=== PATIENT | male | born 1975 | race Two or more races ===

== ENCOUNTER 2019-08-28 16:54 | Emergency (ER) | payer MEDICAID, OTHER ==
[~2019-08-28] VITALS: Ht 190.5 cm; Wt 129.3 kg
[~2019-08-28 16:54] MED LIST: ACYCLOVIR400 MG ORAL; ASPIRIN325 MG ORAL; AZITHROMYCIN250 MG ORAL; BACK STABILIZE1 EACH MC; CEPHALEXIN500 MG ORAL; DOXYCYCLINE MO100 MG ORAL; IBUPROFEN600 MG ORAL; MEDROL DOSEPAK4 MG ORAL; NORCO 5-325 TA1 EACH ORAL; PRILOSEC20 MG ORAL
[2019-08-28 17:15] VITALS: BP 115/76
--- NOTE | 2019-08-28 17:15 | NUR ---
ED Nurse Note: Patient walked in to ER from home due to lower back pain x1 week. Pt has historyn of bulged disc. No SOB. Afebrile. VSS.
--- NOTE | 2019-08-28 18:02 | NUR ---
ED Nurse Note: ERPA at bedside.
[2019-08-28] MEDS ORDERED: HYDROmorphone 1mg/ml Carpuject IM ONE (18:15)
[2019-08-28] MEDS ORDERED: Dexamethasone 4mg/ml vial IM ONE (18:15)
--- NOTE | 2019-08-28 18:37 | Emergency Room Report ---
History of Present Illness General Chief Complaint: Back Pain-No Injury Source: Patient Present Illness HPI 44-year-old male presents to the emergency department complaining of progressive 10/10 in severity low back pain x1 week. Patient states that he has had multiple episodes of similar symptoms in the past and he would typically receive an injection. Patient is requesting the same injection that he received last time and states that it was directly into the spine under anesthesia. Patient denies recent spinal procedures within the last 3 months. Patient denies appreciable trauma or fall. 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 Patient reports pain with attempts to ambulate he denies saddle anesthesia, paresthesia or weakness in the lower extremities. Patient denies urinary incontinence or retention. He denies fevers, chills, night sweats or history of neoplastic disease. Patient is reporting that he is unable to find a position of comfort and does not list any alleviating factors. Denies abdominal pain, urinary frequency, urgency, or hematuria. Allergies: Coded Allergies: No Known Allergies (Unverified , 05/27/14) Patient History Past Medical History: see triage record Past Surgical History: none Pertinent Family History: none Immunizations: UTD Reviewed Nursing Documentation: PMH: Agreed; PSxH: Agreed Nursing Documentation-PMH Past Medical History: No History, Except For Hx Cancer: No Hx Gastrointestinal Problems: No Review of Systems All Other Systems: negative except mentioned in HPI Physical Exam Vital Signs Date Time Temp Pulse Resp B/P (MAP) Pulse Ox O2 Delivery O2 Flow Rate FiO2 08/28/19 17:11 98.6 62 16 115/76 (89) 95 Room Air Sp02 EP Interpretation: reviewed, normal General Appearance: alert, GCS 15, non-toxic, mild distress Head: normocephalic, atraumatic Eyes: bilateral eye normal inspection, bilateral eye PERRL ENT: hearing grossly normal, normal voice Neck: full range of motion Respiratory: lungs clear, normal breath sounds, speaking full sentences Cardiovascular #1: regular rate, rhythm Genitourinary: normal inspection, no CVA tenderness Musculoskeletal: gait/station normal - compensatory, other - pain with ROM testing., tender - Tenderness to palpation to paraspinal muscles of the lower back with some generalized midline tenderness-no specific bony tenderness along the spinous processes or obvious palpable step-off. Neurologic: alert, oriented x3, responsive, motor strength/tone normal, sensory intact, speech normal, grossly normal Psychiatric: judgement/insight normal Skin: other - no bruises or erythema Medical Decision Making PA Attestation Dr. Guthrie Is my supervising Physician whom patient management has been discussed with. Diagnostic Impression: Primary Impression: Back pain Qualified Codes: M54.5 - Low back pain Additional Impression: History of bulging disk ER Course [id number] male presents to the emergency department complaining of progressive 10/10 in severity low back pain x1 week. Patient states that he has had multiple episodes of similar symptoms in the past and he would typically receive an injection. Patient is requesting the same injection that he received last time and states that it was directly into the spine under anesthesia. Patient denies recent spinal procedures within the last 3 months. Patient denies appreciable trauma or fall. 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 Patient reports pain with attempts to ambulate he denies saddle anesthesia, paresthesia or weakness in the lower extremities. Patient denies urinary incontinence or retention. He denies fevers, chills, night sweats or history of neoplastic disease. Patient is reporting that he is unable to find a position of comfort and does not list any alleviating factors. Denies abdominal pain, urinary frequency, urgency, or hematuria. Ddx considered: epidural abscess, fracture, sprain/strain, meningitis, spinal chord injury, sciatica, cauda equina, Pyelonephritis, renal calculi just to name a few. Vital signs reviewed and are WNL during ED visit. Pt. is afebrile with no signs of infection No new symptoms, and denies recent trauma. No saddle anesthesia noted, Pt. denies incontinence Neurovascular is intact ROM is limited due to pain Pt. unable to tolerate straight leg raise testing. Pt. has pain with standing up. *Tenderness to palpation to paraspinal muscles of the lower back with some generalized midline tenderness-no specific bony tenderness along the spinous processes or obvious palpable step-off. *Pt. describes pain today as moderate and radiates across the lower back. ------ I discussed with patient that at this facility we do not usually administer intraspinal injections and that I will review his charts to see what therapies worked for him in the past here. After speaking with his the patient states that he realized that he had that procedure performed at [facility]. ORDERS: none warranted at this time. --Patient has already had imaging performed in the past with no new trauma or changes in characteristics of his symptoms. INTERVENTIONS: - 1 mg IM dilaudid -8mg IM decadron D/W Pt. that for further pain management is it recommended to consult PCP or a Chronic Pain management doctor. A provider who can safely prescribe controlled substances or administer intraspinal injections as needed. with close follow up. -I do not identify an emergent condition at this time. With current presentation , pt. is stable for close outpatient follow up and conservative treatment. D/ w pt. to return promptly to ED with worsening or new symptoms.- Pt. verbalizes' understanding and agreement with proposed treatment plan. DISCHARGE: At this time pt. is stable for d/c to home. Will provide printed patient care instructions, and any necessary prescriptions. Care plan and follow up instructions have been discussed with the patient prior to discharge. Last Vital Signs Date Time Temp Pulse Resp B/P (MAP) Pulse Ox O2 Delivery O2 Flow Rate FiO2 08/28/19 17:15 98.6 77 16 115/76 95 Room Air Disposition: HOME, SELF-CARE Condition: Stable Scripts Tramadol Hcl* (ULTRAM*) 50 Mg Tablet 50 MG ORAL Q6H PRN for For Pain, #20 TAB 0 Refills Prov: Lolis Dejesus 08/28/19 Lidocaine Patch* (Lidoderm Patch*) 1 Each Adh..patch 1 PATCH TOPIC DAILY, #30 PATCH 0 Refills Patch(es) may remain in place for up to 12 hours in any 24-hour period. Prov: Lolis Dejesus 08/28/19 Patient Instructions: Back Pain, Adult Additional Instructions: Take medications as directed. Follow up with a Primary Care Provider for SPINAL SPECIALIST referral within 3-5 days, even if your symptoms have resolved. Return sooner to ED if new symptoms occur, or current symptoms become worse. Do not drink alcohol, drive, or operate heavy machinery while taking Tramadol as this may cause drowsiness. - Please note that this Emergency Department Report was dictated using [employer] and tape machine tender technology software, occasionally this can lead to erroneous entry secondary to interpretation by the dictation equipment. Lolis Dejesus Aug 28, 2019 18:37
[2019-08-28] MEDS ORDERED: TRAMADOL HCL50 MG ORAL (18:38)
[2019-08-28] MEDS ORDERED: LIDODERM700 M1 TOPIC (18:38)
[2019-08-28 18:49] VITALS: BP 115/76
--- NOTE | 2019-08-28 18:49 | NUR ---
ED Nurse Note: Pt cleared by [facility] for discharge. DC instructions/prescription was given and explained to pt and verbalized understanding of teachings. All medical deviecs such as ID band removed. Pt is AAO x4, ambulatory and left with all personal belongings.
== END 2019-08-28 18:50 | disposition home or self-care (01) ==
LOC: EMR 18:46
DX: M54.5 Low back pain (principal)
CPT/HCPCS: 96372; J1100; J1170; Z7502; 99283